=== PATIENT | male | born 1975 | race Caucasian/White ===

== ENCOUNTER 2021-01-16 17:38 | Emergency (ER) | payer OTHER ==
[~2021-01-16 17:38] MED LIST: CORTISPORIN-TC10 M1 EARLF; FLOXIN 0.3% OTIC5 ML AD; IBUPROFEN600 MG PO
== END 2021-01-16 17:59 | disposition home or self-care (01) ==
LOC: ER1 17:38
DX: K06.9 Disorder of gingiva and edentulous alveolar ridge, unspecified (principal); F17.200 Nicotine dependence, unspecified, uncomplicated; Z88.8 Allergy status to other drugs, medicaments and biological substances
CPT/HCPCS: 99282

== ENCOUNTER → 2021-05-14 | Outpatient (CLI) | payer OTHER | LOC: KOH-I 09:02 | DX: S83.231A Complex tear of medial meniscus, current injury, right knee, initial encounter (principal); M71.21 Synovial cyst of popliteal space [Baker], right knee | CPT/HCPCS: 73721 ==